=== PATIENT | female | born 1990 | race Caucasian/White ===

== ENCOUNTER 2017-08-28 15:27 | Emergency (ER) | payer OTHER ==
[2017-08-28 15:36] VITALS: BP 136/84; TEMP 97.7; O2SAT 97
[2017-08-28] MEDS ORDERED: IBUPROFEN 600 MG TAB PO ONE ×2 (15:48→15:51)
--- NOTE | 2017-08-28 16:00 | EDPHY ---
H & P Time Seen by Provider: 08/28/17 15:59 HPI/ROS: CHIEF COMPLAINT: Left thumb injury HISTORY OF PRESENT ILLNESS: Fell yesterday on ice while snowboarding injuring thumb and the webspace. REVIEW OF SYSTEMS: No wrist forearm or elbow symptoms PAST MEDICAL HISTORY: Gallbladder problems General Appearance: Alert and conversant, cooperative. Normal left forearm and wrist without scaphoid tenderness. She has swelling and tenderness at the base of the thumb from the IP joint to the MCP joint. Normal fingers and normal capillary refill motor and sensory distally. Bruising but no skin laceration Emergency Department course/MDM: X-ray personally interpreted as negative for fracture reviewed with the patient on the computer system. Left Velcro thumb spica splint. Warned: Hand referral, warned may have an ulnar collateral ligament injury. Smoking Status: Current some day smoker Constitutional: Initial Vital Signs Temperature (C) 36.5 C 08/28/17 15:34 Heart Rate 94 08/28/17 15:34 Respiratory Rate 16 08/28/17 15:34 Blood Pressure 136/84 H 08/28/17 15:34 O2 Sat (%) 97 08/28/17 15:34 O2 Delivery Mode Room Air Allergies/Adverse Reactions: No Known Allergies Allergy (Verified 08/28/17 15:37) Home Medications: Medication Instructions Recorded oxyCODONE/APAP 5/325 [Percocet 1 - 2 tab PO Q4H PRN #20 tab 04/01/15 5/325 (*)] oxyCODONE/APAP 5/325 [Percocet] 1 tab PO Q4-6PRN PRN #11 tab 08/28/17 MDM/Departure - MDM Imaging Results: Imaging Impressions Hand X-Ray 08/28/17 16:02 Impression: No acute osseous abnormalities. Medications Given: Discontinued Medications Ibuprofen (Motrin) 600 mg PO EDNOW ONE Stop: 08/28/17 15:52 Last Admin: 08/28/17 15:51 Dose: 600 mg - Depart Disposition: Home, Routine, Self-Care Clinical Impression: Sprain of hand, thumb, left Qualifiers: Encounter type: initial encounter Sprain of finger site: unspecified site Qualified Code(s): S63.602A - Unspecified sprain of left thumb, initial encounter Condition: Good Instructions: Skier's Thumb (ED) Additional Instructions: Your allowed to work as long as you wear the splint on the left hand, limited use of the left hand until approved by follow-up hand surgeon. Please follow-up with hand surgeon within the next week. Prescriptions: oxyCODONE/APAP 5/325 [Percocet] 1 tab PO Q4-6PRN PRN #11 tab PRN Reason: Pain Referrals: Clinton Sanderson MD [Primary Care Provider] - As per Instructions Eladio Dominguez MD [Medical Doctor] - As per Instructions
[2017-08-28 16:27] VITALS: PULSE 84; RESP 14
== END 2017-08-28 16:25 | disposition home or self-care (01) ==
DX: S63.602A Unspecified sprain of left thumb, initial encounter (principal); F17.200 Nicotine dependence, unspecified, uncomplicated; V00.311A Fall from snowboard, initial encounter; Y99.8 Other external cause status; Y93.23 Activity, snow (alpine) (downhill) skiing, snowboarding, sledding, tobogganing and snow tubing
CPT/HCPCS: L3807